=== PATIENT | female | born 1985 | race African-American/Black ===

== ENCOUNTER 2019-06-13 05:59 | Day surgery (SDC) ==
[2019-06-13] MEDS ORDERED: XYLOCAINE-MPF 2% ONE (06:06)
[2019-06-13] MEDS ORDERED: DIPRIVAN 1% ONE ×2 (06:07→06:38)
[2019-06-13] MEDS ORDERED: FENTANYL ONE (06:07)
[2019-06-13] MEDS ORDERED: VERSED ONE (06:07)
[2019-06-13] MEDS ORDERED: QUELICIN (DOSE) ONE ×2 (06:07→06:36)
--- NOTE | 2019-06-13 06:19 | EKG Report ---
Test Performed on : 06/13/2019 06:15:16 AM Test Reason : Preop Blood Pressure : / mmHG Vent. Rate : 076 BPM Atrial Rate : 076 BPM P-R Int : 144 ms QRS Dur : 090 ms QT Int : 394 ms P-R-T Axes : 045 046 030 degrees QTc Int : 443 ms Normal sinus rhythm. with sinus arrhythmia. Normal ECG No previous ECGs available Confirmed by Teresa TOUSSAINT, Johny Arauz ([id number]) on 06/13/2019 8:43:56 PM
[2019-06-13] MEDS ORDERED: PEPCID ONE (06:34)
[2019-06-13] MEDS ORDERED: REGLAN ONE (06:34)
[2019-06-13] MEDS ORDERED: LR 1,000 ML ONE (06:35)
[2019-06-13] MEDS ORDERED: TRANSDERM-SCOP ONE (06:35)
[2019-06-13] MEDS ORDERED: NAROPIN 0.2% ONE (06:41)
[2019-06-13] MEDS ORDERED: SODIUM CHLORIDE 0.9% 20 ML ONE (07:05)
[2019-06-13] MEDS ORDERED: PRECEDEX ONE (07:13)
[2019-06-13] MEDS ORDERED: ZOFRAN ONE (07:48)
[2019-06-13] MEDS ORDERED: DECADRON ONE (07:48)
[2019-06-13] MEDS ORDERED: ROBINUL ONE ×2 (07:48→08:10)
[2019-06-13] MEDS ORDERED: BRIDION ONE (08:35)
[2019-06-13] MEDS ORDERED: OFIRMEV 1000 MG/ISOTONIC SOLN 1,000 MG/100 ML BOTTLE ONE (08:58)
[2019-06-13] MEDS: LR 1,000 ML ONE ×2 (09:04→09:05)
[2019-06-13] MEDS ORDERED: NORCO-10 ONE (09:16)
[2019-06-13] MEDS ORDERED: NORCO-7.5 PO PRN (10:12)
[2019-06-13] MEDS ORDERED: NORCO-5 PO PRN (10:12)
--- NOTE | 2019-06-13 10:16 | EKG Report ---
Test Performed on : 06/13/2019 09:59:36 AM Test Reason : post op Blood Pressure : / mmHG Vent. Rate : 068 BPM Atrial Rate : 068 BPM P-R Int : 146 ms QRS Dur : 102 ms QT Int : 412 ms P-R-T Axes : 058 052 028 degrees QTc Int : 438 ms Normal sinus rhythm. Normal ECG When compared with ECG of 13-JUN-2019 06:15, (Unconfirmed) No significant change was found Confirmed by Teresa TOUSSAINT, Johny Arauz ([id number]) on 06/13/2019 8:50:42 PM
[2019-06-13] MEDS ORDERED: LR 1,000 ML IV SCH (11:00)
[2019-06-13] MEDS: NORCO-10 PO PRN ×4 (11:21→23:31)
[2019-06-13] MEDS: DECADRON IV SCH ×2 (15:05→23:32)
--- NOTE | 2019-06-13 16:00 | OPERATIVE NOTE ---
PROCEDURE DATE: 06/13/2019 PREOPERATIVE DIAGNOSES: 1. Obstructive sleep apnea. 2. Adenoid hypertrophy. POSTOPERATIVE DIAGNOSES: 1. Obstructive sleep apnea. 2. Adenoid hypertrophy. PROCEDURE: Adenoidectomy. ANESTHESIA: General with endotracheal intubation COMPLICATIONS: None. FINDINGS: 2 to 3+ adenoid tissue. DESCRIPTION OF PROCEDURE: The patient identified. Consented options were reviewed. She was brought to the operating room, placed in supine position where general anesthesia was induced with endotracheal intubation. She was prepped and draped in usual fashion for adenotonsillectomy. McIvor mouth gag was placed. Oropharyngeal visualization was performed. No tonsils were noted. A red rubber catheter was placed through the nose and brought out through the mouth for soft palate retraction. Indirect nasopharyngeal visualization reveals 3+ adenoids. The microdebrider adenoid blade was used to remove completely the adenoid tissue back to its base. Tonsil sponges were placed for roughly 7- 8 minutes and then when these were removed suction Bovie cautery was used to achieve meticulous hemostasis. The throat was irrigated and suctioned prior to extubation. She was allowed to recover from anesthesia, extubated and transferred to recovery room in stable condition. She will be monitored overnight closely for oxygen desaturations using her own CPAP prior to discharge in morning. cc: Reynold Farr MD
[2019-06-14 07:24] VITALS: BP 129/77
[2019-06-14] MEDS: DECADRON IV SCH (08:06)
== END 2019-06-14 11:26 | disposition home or self-care (01) ==
LOC: OR 05:59 → 2N 05:59 → OR 06-14 11:26
PROVIDERS: ATTEND Otolaryngology Otolaryngology/Facial Plastic Surgery
PROC: ENT.ADN (2019-06-13 07:39)